=== PATIENT | female | born 1975 | race African-American/Black ===

== ENCOUNTER 2017-04-10 13:38 | Emergency (ER) | payer BC ==
[~2017-04-10] VITALS: Ht 177.8 cm; Wt 80.7 kg
[~2017-04-10 13:38] MED LIST: APAP500 PO; IBUPROFEN200 M1 PO; LANOLIN56 GM; TRINATE TABLET1 TAB PO
== END 2017-04-10 15:32 | disposition home or self-care (01) ==
LOC: ER 13:38
DX: J20.8 Acute bronchitis due to other specified organisms (principal)